=== PATIENT | male | born 1970 | race Caucasian/White ===

== ENCOUNTER 2021-02-16 14:59 | Emergency (ER) | payer MEDICAID ==
[~2021-02-16] VITALS: Ht 177.8 cm; Wt 99.8 kg
[2021-02-16 15:12] VITALS: BP_SYST 132
[2021-02-16] MEDS ORDERED: ONDANSETRON 4 MG ODT TAB PO ONE (15:30)
[2021-02-16] MEDS ORDERED: MORPHINE 4 MG INJ. 4 MG/ML VIAL IM ONE (15:30)
[2021-02-16] MEDS ORDERED: ONDA-8 TL (16:10)
[2021-02-16] MEDS ORDERED: IBUP-1969 PO (16:10)
[2021-02-16] MEDS ORDERED: HYDR-3917 PO (16:10)
[2021-02-16 16:47] VITALS: BP_SYST 125
== END 2021-02-16 16:46 | disposition home or self-care (01) ==
LOC: SED 14:59
DX: M25.561 Pain in right knee (principal); M25.562 Pain in left knee; I10 Essential (primary) hypertension; F31.9 Bipolar disorder, unspecified; Z88.0 Allergy status to penicillin
CPT/HCPCS: 96372; 99283; J2270; Q0162

== ENCOUNTER 2021-03-08 13:13 | Emergency (ER) | payer MEDICAID ==
[~2021-03-08] VITALS: Ht 175.3 cm; Wt 90.7 kg
[~2021-03-08 13:13] MED LIST: HYDR-3917 PO; IBUP-1969 PO; ONDA-8 TL
[2021-03-08 13:22] VITALS: BP_SYST 118
[2021-03-08 14:02] LABS: BASOPHILS # (AUTO) 0.1 K/uL (0.0-0.2); BASOPHILS % (AUTO) 0.5 % (0.0-2.0); EOSINOPHILS % (AUTO) 0.2 % (0.0-4.0); HEMATOCRIT 30.9 % (36-54); HEMOGLOBIN 10.3 g/dL (14.0-18.0); LYMPHOCYTES # (AUTO) 1.1 K/uL (1.0-5.5); LYMPHOCYTES % (AUTO) 8.5 % (20.5-51.5); MEAN CORPUSCULAR HEMOGLOBIN 30 pg (27-31); MEAN CORPUSCULAR HGB CONC 33 % (32-36); MEAN CORPUSCULAR VOLUME 89 fL (79.0-98.0); MONOCYTES # (AUTO) 1.6 K/uL (0.0-1.0); MONOCYTES % (AUTO) 12.2 % (1.7-9.3); NEUTROPHILS # (AUTO) 10.6 K/uL (1.8-7.7); NEUTROPHILS % (AUTO) 78.6 % (40.0-70.0); PLATELET COUNT (AUTO) 360 K/uL (130-430); RED BLOOD CELL COUNT(AUTO) 3.48 MIL/uL (4.2-6.2); RED CELL DISTRIBUTION WIDTH 17.4 % (9.0-15.0); WHITE BLOOD COUNT (AUTO) 13.4 K/uL (4.8-10.8)
[2021-03-08 14:30] LABS: CALCIUM 8.6 mg/dL (8.4-11.0); CREATININE 1.65 mg/dL (0.55-1.30); POTASSIUM 4.2 mmol/L (3.5-5.1)
[2021-03-08 14:36] LABS: ALBUMIN 3.1 g/dL (3.4-4.8); TOTAL BILIRUBIN 0.4 mg/dL (0.0-1.0)
[2021-03-08] MEDS ORDERED: FUROSEMIDE 20 MG TABLET PO ONE (19:15)
[2021-03-08 19:37] VITALS: BP_SYST 112
== END 2021-03-08 19:37 | disposition home or self-care (01) ==
LOC: SED 13:13
DX: R60.0 Localized edema (principal); I10 Essential (primary) hypertension; F15.90 Other stimulant use, unspecified, uncomplicated; Z79.899 Other long term (current) drug therapy
CPT/HCPCS: 36415; 71045; 80053; 83880; 85025; 93005; 99285